=== PATIENT | female | born 1945 | race Caucasian/White ===

== ENCOUNTER 2023-05-17 09:05 | Outpatient (CLI) | payer MEDICARE, SELFPAY | END 2023-05-17 09:06 | disposition home or self-care (01) | PROVIDERS: PCP Family Medicine; Visit Provider Family Medicine | DX: R51.9 Headache, unspecified (principal); E78.5 Hyperlipidemia, unspecified; E07.9 Disorder of thyroid, unspecified; I65.23 Occlusion and stenosis of bilateral carotid arteries; R53.83 Other fatigue | CPT/HCPCS: 80053; 80061; 82306; 84439; 84443 ==

== ENCOUNTER 2023-06-28 07:48 | Outpatient (CLI) | payer MEDICARE, SELFPAY | END 2023-06-28 07:49 | disposition home or self-care (01) | LOC: NFLDREF 17:36 | PROVIDERS: PCP Family Medicine; Visit Provider Family Medicine | DX: E07.9 Disorder of thyroid, unspecified (principal); E55.9 Vitamin D deficiency, unspecified | CPT/HCPCS: 82306; 84443 ==

== ENCOUNTER 2023-07-26 07:53 | Outpatient (CLI) | payer MEDICARE, SELFPAY | END 2023-07-26 07:54 | disposition home or self-care (01) | LOC: NFLDREF 07-27 00:42 | PROVIDERS: PCP Family Medicine; Visit Provider Family Medicine | DX: E07.9 Disorder of thyroid, unspecified (principal) | CPT/HCPCS: 84436; 84443; 84480 ==

== ENCOUNTER 2023-08-09 08:15 | Outpatient (CLI) | payer MEDICARE, SELFPAY ==
--- NOTE | 2023-08-09 09:15 | CRLHL7_ITS ---
For Patients: As a result of the Century Cures Act, medical imaging exams and procedure reports are released immediately into your electronic medical record. You may view this report before your referring provider. If you have questions, please contact your health care provider. BILATERAL SCREENING MAMMOGRAM WITH COMPUTER-AIDED DETECTION AND TOMOSYNTHESIS TECHNIQUE: CC and MLO views were obtained. These mammographic images have been obtained using full-field digital technique. These mammographic images were interpreted with the benefit of computer-aided detection. Breast Tomosynthesis was used in this interpretation. COMPARISON FILM: No priors available. FINDINGS: There are scattered areas of fibroglandular density IMPRESSION: There is no radiographic evidence for malignancy. ASSESSMENT: BI-RADS Category 1: Negative RECOMMENDATION: Routine screening mammogram in 1 year. A lay language report of this examination will be provided to the patient. Florencio Calderon M.D. Diagnostic Radiologist [email or web address] VIRGILIO/Dictated by: Florencio Calderon MD @ 08/24/2023 11:44:00 AM (Electronically Signed)
== END 2023-08-09 08:16 | disposition home or self-care (01) ==
LOC: MAMMO 08:17
PROVIDERS: PCP Family Medicine; Visit Provider Family Medicine
DX: Z12.31 Encounter for screening mammogram for malignant neoplasm of breast (principal)
CPT/HCPCS: 77063; 77067

== ENCOUNTER 2023-09-11 14:08 | Outpatient (CLI) | payer MEDICARE, SELFPAY | END 2023-09-11 14:09 | disposition home or self-care (01) | LOC: NFLDREF 09-15 18:29 | PROVIDERS: PCP Family Medicine; Referring Provider Family Medicine; Visit Provider Family Medicine | DX: R35.0 Frequency of micturition (principal) | CPT/HCPCS: 87086; 87186 ==

== ENCOUNTER 2023-09-20 14:19 | Outpatient (CLI) | payer MEDICARE, SELFPAY | END 2023-09-20 14:20 | disposition home or self-care (01) | LOC: NFLDREF 09-21 03:07 | PROVIDERS: PCP Family Medicine; Referring Provider Family Medicine; Visit Provider Family Medicine | DX: N39.0 Urinary tract infection, site not specified (principal) | CPT/HCPCS: 87086 ==

== ENCOUNTER 2024-04-30 08:11 | Outpatient (CLI) | payer MEDICARE, SELFPAY | END 2024-04-30 08:12 | disposition home or self-care (01) | LOC: NFLDREF 05-01 06:37 | PROVIDERS: PCP Physician Assistant Medical; Referring Provider Physician Assistant Medical; Visit Provider Family Medicine | DX: N39.0 Urinary tract infection, site not specified (principal); E03.9 Hypothyroidism, unspecified; I10 Essential (primary) hypertension; E55.9 Vitamin D deficiency, unspecified; E78.5 Hyperlipidemia, unspecified | CPT/HCPCS: 80053; 80061; 82306; 84443; 87086 ==

== ENCOUNTER 2024-07-04 10:22 | Outpatient (CLI) | payer MEDICARE, SELFPAY ==
--- OUTSIDE RECORDS SUMMARY | 2024-07-04 10:29 | XMS_ITS | Referral Summary ---
Author Organization [place] Address [facility] [place] [address] Care Team Providers Care Electrical Cad Technician Name Role Phone No Ref-Primary, Physician Primary Care Provider Allergies Active Allergy Reactions Criticality Noted Date Comments Sulfamethoxazole-Trimethop rim 10/05/2023 Codeine 10/05/2023 Cefoxitin 10/05/2023 Penicillins 10/05/2023 Statins 10/05/2023 Some statins. Can take Pravastatin Medications Medication Sig Dispensed Refills Start Date End Date Status SYNTHROID 100 MCG tablet Take 100 mcg by mouth daily 08/03/2023 Active estradiol (ESTRACE) 0.1 MG/GM vaginal cream Place vaginally three times a week 01/24/2022 Active clindamycin (CLEOCIN) 300 MG capsule Take 300 mg by mouth as needed Prior to dental procedures Active hydrochlorothiazide (HYDRODIURIL) 12.5 MG tablet Take 12.5 mg by mouth daily 07/21/2023 Active pravastatin (PRAVACHOL) 40 MG tablet Take 40 mg by mouth daily Active PRALUENT 75 MG/ML injectable pen Inject 75 mg Subcutaneous every 14 days 09/07/2023 Active cholecalciferol (VITAMIN D3) 1250 mcg (12137 units) capsule Take 1,250 mcg by mouth every 7 days on Saturdays08/03/2023 Active nitroFURantoin macrocrystal (MACRODANTIN) 100 MG capsule Take 100 mg by mouth daily 09/21/2023 Active loratadine (CLARITIN REDITABS) 10 MG ODT Take 10 mg by mouth daily Active butalbital-acetamino phen-caffeine (ESGIC) 50-325-40 MG tablet Take 1 tablet by mouth daily as needed for headaches Active ondansetron (ZOFRAN) 4 MG tablet Take 4 mg by mouth every 8 hours as needed for nausea Active acetaminophen (TYLENOL) 500 MG tabletIndications:SB O (small bowel obstruction) (H) Take 1-2 tablets (500-1,000 mg) by mouth every 6 hours as needed for mild pain 10/07/2023 Active Active Problems Problem Noted Date Diagnosed Date SBO (small bowel obstruction) 10/05/2023 Social History Tobacco Use Types Packs/Day Years Used Date Smoking Tobacco: Never Assessed Adolescent Education Answer Date Record ed Getting School Help Needed Not on file 10/05 Sex and Gender Information Value Date Recorded Sex Assigned at Female 06/11/2024 9:32 PM CDT Gender Identity Female 06/11/2024 9:32 PM CDT Sexual Orientation Straight 06/11/2024 9: 32 PM CDT Last Filed Vital Signs Vital Sign Reading Time Taken Comments Blood Pressure 122/58 10/07/2023 8:12 AM WELFARE INTERVIEWER Pulse 79 10/07/2023 8:12 AM WELFARE INTERVIEWER Temperature 36.7 ??C (98 ??F) 10/07/2023 8:12 AM WELFARE INTERVIEWER Respiratory Rate 16 10/07/2023 8:12 AM WELFARE INTERVIEWER Oxygen Saturation 98% 10/07/2023 8:12 AM WELFARE INTERVIEWER Inhaled Oxygen Concentration - - Weight 53.5 kg (118 lb) 10/05/2023 11:30 AM WELFARE INTERVIEWER Height 154.9 cm (5' 1) 10/05/2023 11:30 AM WELFARE INTERVIEWER Body Mass Index 22.3 10/05/2023 11:30 AM WELFARE INTERVIEWER Plan of Treatment Not on file Procedures Procedure Name Priority Date/Time Associated Diagnosis Comments GLUCOSE BY METER Routine 10/07/2023 6:01 AM WELFARE INTERVIEWER from Last 3 Months or Most Recently Relevant to Health Maintenance Results * (ABNORMAL) Glucose by meter (10/07/2023 6:01 AM WELFARE INTERVIEWER) GLUCOSE BY METER POCT 104(H) 70 - 99 mg/dL 10/07/2023 6:08 AM WELFARE INTERVIEWER RH LABORATORY POC Blood, Capillary BLOOD SPECIMEN / Unknown 10/07/2023 6:01 AM WELFARE INTERVIEWER 10/07/2023 6:08 AM WELFARE INTERVIEWER Garrett Hardy MD LAB - BEAKER PO CT RH LABORATORY POC [facility] Acute Care Lab [address] Lab (1st floor, no room number) [place] [address], [facility] [phone] from Last 3 Months or Most Recently Relevant to Health Maintenance Advance Directives For more information, please contact: [phone] * Full Code (Latest Code Status on File) Date Activated Date Inactivated Comments 10/05/2023 10:50 PM 10/07/2023 4:52 PM All basic and advanced life-sustaining interventions are performed as appropriate Question Answer Comments Code status determined by: Discussion with patie nt/ legal decision maker * Full Code Date Activated Date Inactivated Comments 10/05/2023 6:06 PM 10/05/2023 10:50 PM All basic and advanced life-sustaining interventions are performed as appropriate Question Answer Comments Code status determined by: Discussion with patie nt/ legal decision maker Care Teams Electrical Cad Technician Relationship Specialty Start Date End Date No Ref-Primary, Physician PCP - General 10/05/23
--- OUTSIDE RECORDS SUMMARY | 2024-07-04 10:29 | XMS_ITS | Clinical Summary ---
Author Organization [place] Address [facility]0 [facility] [place] [address] Care Team Providers Care Glass Wool Blanket Machine Feeder Name Role Phone No Ref-Primary, Physician Primary [...] 09/07/2023 Active cholecalciferol (VITAMIN D3) 1250 mcg (14468 units) capsule Take 1,250 mcg by mouth [...] Comments Blood Pressure 122/58 10/07/2023 8:12 AM ETCHED CIRCUIT PROCESSOR Pulse 79 10/07/2023 8:12 AM ETCHED CIRCUIT PROCESSOR Temperature 36.7 ??C (98 ??F) 10/07/2023 8:12 AM ETCHED CIRCUIT PROCESSOR Respiratory Rate 16 10/07/2023 8:12 AM ETCHED CIRCUIT PROCESSOR Oxygen Saturation 98% 10/07/2023 8:12 AM ETCHED CIRCUIT PROCESSOR Inhaled Oxygen Concentration - - Weight 53.5 kg (118 lb) 10/05/2023 11:30 AM ETCHED CIRCUIT PROCESSOR Height 154.9 cm (5' 1) 10/05/2023 11:30 AM ETCHED CIRCUIT PROCESSOR Body Mass Index 22.3 10/05/2023 11:30 AM ETCHED CIRCUIT PROCESSOR Plan of Treatment Health Maintenance Due Date Last Done Comments ADVANCE CARE PLANNING 1945 ANNUAL REVIEW OF HM ORDERS 1945 LIPID 1945 TSH W/FREE T4 REFLEX 1945 HEPATITIS C SCREENING 1963 ZOSTER IMMUNIZATION (1 of 2) 1995 RSV VACCINE (1 - 1-dose 60+ series) 2005 FALL RISK ASSESSMENT 2010 DTAP/TDAP/TD IMMUNIZATION (2 - Td or Tdap) 05/26/2019 05/26/2009 MEDICARE ANNUAL WELLNESS VISIT 09/08/2023 09/08/2022, 09/07/2021, 04/21/2020, Additional history exists PHQ-2 (once per calendar year) 2023 COVID-19 Vaccine (2022- season) 2024 07/27/2023, 07/27/2023, 08/24/2021, Additional history exists INFLUENZA VACCINE (#1) 2024 , 07/13/2023, 07/29/2022, Additional history exists GLUCOSE 10/07/2026 10/07/2023, 09/22, 10/05/2023 DEXA 09/08/2037 09/08/2022 Pneumococcal Vaccine: 65+ Years Completed 08/16/2023 HPV IMMUNIZATION Aged Out No longer e ligible based on patient's age to complete this topic MENINGITIS IMMUNIZATION Aged Out No l onger eligible based on patient's age to complete this topic RSV MONOCLONAL ANTIBODY Aged Out No l onger eligible based on patient's age to complete this topic Procedures Procedure Name Priority Date/Time Associated Diagnosis Comments GLUCOSE BY METER Routine 10/07/2023 6:01 AM ETCHED CIRCUIT PROCESSOR from Last 3 Months or Most Recently Relevant to Health Maintenance Results * (ABNORMAL) Glucose by meter (10/07/2023 6:01 AM ETCHED CIRCUIT PROCESSOR) GLUCOSE BY METER POCT 104(H) 70 - 99 mg/dL 10/07/2023 6:08 AM ETCHED CIRCUIT PROCESSOR LABORATORY POC Blood, Capillary BLOOD SPECIMEN / Unknown 10/07/2023 6:01 AM ETCHED CIRCUIT PROCESSOR 10/07/2023 6:08 AM ETCHED CIRCUIT PROCESSOR [facility] Acute Care Lab [address] [facility] Lab (1st floor, no room number) [place] [address], [facility] [phone] from Last 3 Months or Most Recently Relevant to Health Maintenance Advance Directives For more information, please contact: [phone] * Full Code (Latest Code Status on File) Date Activated Date Inactivated Comments 10/05/2023 10:50 PM 10/07/2023 4:52 PM All basic and advanced life-sustaining interventions are performed as appropriate Question Answer Comments Code status determined by: Discussion with tamika viramontes/ legal decision maker * Full Code Date Activated Date Inactivated Comments 10/05/2023 6:06 PM 10/05/2023 10:50 PM All basic and advanced life-sustaining interventions are performed as appropriate Question Answer Comments Code status determined by: Discussion with tamika viramontes/ legal decision maker Care Teams Glass Wool Blanket Machine Feeder Relationship Specialty Start Date End Date No Ref-Primary, Physician PCP - General 10/05/23
== END 2024-07-04 10:23 | disposition home or self-care (01) ==
LOC: RAD 10:23
PROVIDERS: PCP Physician Assistant Medical; Visit Provider Internal Medicine Cardiovascular Disease
DX: I34.1 Nonrheumatic mitral (valve) prolapse (principal)
CPT/HCPCS: 93306

== ENCOUNTER 2024-08-13 10:51 | Outpatient (CLI) | payer MEDICARE, SELFPAY ==
--- OUTSIDE RECORDS SUMMARY | 2024-08-13 10:53 | XMS_ITS | Referral Summary ---
Author Organization [place] Address [facility] [place] [address] Care Team Providers Care Group Billing Coordinator Name Role Phone No Ref-Primary, Physician Primary [...] 09/07/2023 Active cholecalciferol (VITAMIN D3) 1250 mcg (37893 units) capsule Take 1,250 mcg by mouth [...] Comments Blood Pressure 122/58 10/07/2023 8:12 AM CLOTH DOUBLING MACHINE OPERATOR Pulse 79 10/07/2023 8:12 AM CLOTH DOUBLING MACHINE OPERATOR Temperature 36.7 ??C (98 ??F) 10/07/2023 8:12 AM CLOTH DOUBLING MACHINE OPERATOR Respiratory Rate 16 10/07/2023 8:12 AM CLOTH DOUBLING MACHINE OPERATOR Oxygen Saturation 98% 10/07/2023 8:12 AM CLOTH DOUBLING MACHINE OPERATOR Inhaled Oxygen Concentration - - Weight 53.5 kg (118 lb) 10/05/2023 11:30 AM CLOTH DOUBLING MACHINE OPERATOR Height 154.9 cm (5' 1) 10/05/2023 11:30 AM CLOTH DOUBLING MACHINE OPERATOR Body Mass Index 22.3 10/05/2023 11:30 AM CLOTH DOUBLING MACHINE OPERATOR Plan of Treatment Not on file Procedures Procedure Name Priority Date/Time Associated Diagnosis Comments GLUCOSE BY METER Routine 10/07/2023 6:01 AM CLOTH DOUBLING MACHINE OPERATOR from Last 3 Months or Most Recently Relevant to Health Maintenance Results * (ABNORMAL) Glucose by meter (10/07/2023 6:01 AM CLOTH DOUBLING MACHINE OPERATOR) GLUCOSE BY METER POCT 104(H) 70 - 99 mg/dL 10/07/2023 6:08 AM CLOTH DOUBLING MACHINE OPERATOR RH LABORATORY POC Blood, Capillary BLOOD SPECIMEN / Unknown 10/07/2023 6:01 AM CLOTH DOUBLING MACHINE OPERATOR 10/07/2023 6:08 AM CLOTH DOUBLING MACHINE OPERATOR Garrett Hardy MD LAB - BEAKER PO CT RH LABORATORY POC [facility] Acute Care Lab [address] Lab (1st floor, no room number) [place] [address], [facility] [phone] from Last 3 Months or Most Recently Relevant to Health Maintenance Advance Directives For more information, please contact: [phone] * Full Code (Latest Code Status on [...] patie nt/ legal decision maker Care Teams Group Billing Coordinator Relationship Specialty Start Date End Date No Ref-Primary, Physician PCP - General 10/05/23
--- OUTSIDE RECORDS SUMMARY | 2024-08-13 10:53 | XMS_ITS | Clinical Summary ---
Author Organization [place] Address On license of [facility]0 [facility] [place] [address] Care Team Providers Care Human Resources Office Manager Name Role Phone No Ref-Primary, Physician Primary [...] 09/07/2023 Active cholecalciferol (VITAMIN D3) 1250 mcg (35219 units) capsule Take 1,250 mcg by mouth [...] Comments Blood Pressure 122/58 10/07/2023 8:[address] FOREMAN Pulse 79 10/07/2023 8:[address] FOREMAN Temperature 36.7 ??C (98 ??F) 10/07/2023 8:[address] FOREMAN Respiratory Rate 16 10/07/2023 8:[address] FOREMAN Oxygen Saturation 98% 10/07/2023 8:[address] FOREMAN Inhaled Oxygen Concentration - - Weight 53.5 kg (118 lb) 10/05/2023 11:[address] FOREMAN Height 154.9 cm (5' 1) 10/05/2023 11:[address] FOREMAN Body Mass Index 22.3 10/05/2023 11:[address] FOREMAN Plan of Treatment Health Maintenance Due Date Last Done Comments ADVANCE CARE PLANNING 1945 ANNUAL REVIEW OF HM ORDERS 1945 LIPID 1945 TSH W/FREE T4 REFLEX 1945 HEPATITIS C SCREENING 1963 ZOSTER IMMUNIZATION (1 of 2) 1995 FALL RISK ASSESSMENT 2010 DTAP/TDAP/TD IMMUNIZATION (2 - Td or Tdap) 05/26/2019 05/26/2009 RSV VACCINE (1 - 1-dose 75+ series) 2020 MEDICARE ANNUAL WELLNESS VISIT 09/08/2023 09/08/2022, 09/07/2021, 04/21/2020, Additional history exists PHQ-2 (once per calendar year) 2023 COVID-19 Vaccine ( season) 2024 07/27/2023, 07/27/2023, 08/24/2021, Additional history [...] GLUCOSE BY METER Routine 10/07/2023 6:[address] FOREMAN from Last 3 Months or Most Recently Relevant to Health Maintenance Results * (ABNORMAL) Glucose by meter (10/07/2023 6:[address] OF [address] FOREMAN) GLUCOSE BY METER POCT 104(H) 70 - 99 mg/dL 10/07/2023 6:[address] FOREMAN LABORATORY POC Blood, Capillary BLOOD SPECIMEN / Unknown 10/07/2023 6:[address] FOREMAN 10/07/2023 6:[address] FOREMAN [facility] Acute Care Lab [address] [facility] Lab (1st floor, no room number) [place] [address], [facility] [phone] from Last 3 Months or Most Recently Relevant to Health Maintenance Advance Directives For more information, please contact: [phone] * Full Code (Latest Code Status on [...] tamika viramontes/ legal decision maker Care Teams Human Resources Office Manager Relationship Specialty Start Date End Date No Ref-Primary, Physician PCP - General 10/05/23
--- NOTE | 2024-08-13 11:30 | CRLHL7_ITS ---
For Patients: As a result of the Century Cures Act, medical imaging exams and procedure reports are released immediately into your electronic medical record. You may view this report before your referring provider. If you have questions, please contact your health care provider. BILATERAL SCREENING MAMMOGRAM WITH COMPUTER-AIDED DETECTION AND TOMOSYNTHESIS TECHNIQUE: CC and MLO views were obtained. These mammographic images have been obtained using full-field digital technique. These mammographic images were interpreted with the benefit of computer-aided detection. Breast Tomosynthesis was used in this interpretation. COMPARISON FILM: 08/09/23, 07/18/22, 06/02/21. FINDINGS: There are scattered areas of fibroglandular density. IMPRESSION: There is no radiographic evidence for malignancy. ASSESSMENT: BI-RADS Category 1: Negative RECOMMENDATION: Routine screening mammogram in 1 year. A lay language report of this examination will be provided to the patient. Florencio Calderon M.D. Diagnostic Radiologist [email or web address] SP/Dictated by: Florencio Calderon MD @ 08/13/2024 12:49:00 PM (Electronically Signed)
== END 2024-08-13 10:52 | disposition home or self-care (01) ==
LOC: MAMMO 10:52
PROVIDERS: PCP Physician Assistant Medical; Visit Provider Physician Assistant Medical
DX: Z12.31 Encounter for screening mammogram for malignant neoplasm of breast (principal)
CPT/HCPCS: 77063; 77067

== ENCOUNTER 2025-01-08 11:00 | Outpatient (CLI) | payer MEDICARE, SELFPAY | END 2025-01-08 11:01 | disposition home or self-care (01) | LOC: NFLDREF 01-10 09:38 | PROVIDERS: PCP Physician Assistant Medical; Referring Provider Physician Assistant Medical; Visit Provider Physician Assistant Medical | DX: R30.0 Dysuria (principal); R35.0 Frequency of micturition | CPT/HCPCS: 87086 ==

== ENCOUNTER 2025-08-22 13:54 | Outpatient (CLI) | payer MEDICARE, SELFPAY ==
--- NOTE | 2025-08-22 14:00 | CRLHL7_ITS ---
For Patients: As a result of the Century Cures Act, medical imaging exams and procedure reports are released immediately into your electronic medical record. You may view this report before your referring provider. If you have questions, please contact your health care provider. INDICATION: BILATERAL SCREENING MAMMOGRAM, ASYMPTOMATIC 80 Y/O FEMALE COMPARISON: 08/13/2024, 08/09/2023, 07/18/2022 TECHNIQUE: Digital mammogram in CC and MLO projections including computer-aided detection (CAD) and tomosynthesis. BREAST COMPOSITION: There are scattered areas of fibroglandular density. FINDINGS: No suspicious findings. ASSESSMENT: BI-RADS 2 Benign RECOMMENDATION: Annual screening mammogram. A lay language report of this examination will be provided to the patient. Dictated by: Florencio Calderon MD @ 08/25/2025 09:41:33 (Electronically Signed)
== END 2025-08-22 13:55 | disposition home or self-care (01) ==
PROVIDERS: PCP Family Medicine; Visit Provider Family Medicine
DX: Z12.31 Encounter for screening mammogram for malignant neoplasm of breast (principal)
CPT/HCPCS: 77063; 77067